=== PATIENT | female | born 1995 | race Caucasian/White ===

== ENCOUNTER 2017-07-01 11:40 | Emergency (ER) | payer SELFPAY ==
[2017-07-01] MEDS ORDERED: IBUPROFEN 600 MG TABLET PO ONE (13:12)
--- NOTE | 2017-07-01 13:14 | ER Document Report ---
ED General - General Chief Complaint: Sore Throat Stated Complaint: BODY ACHES Time Seen by Provider: 07/01/17 12:18 Mode of Arrival: Ambulatory Information source: Patient Notes: Patient is a 22 year old female who presents with body aches, sore throat, ear pain, that started this morning when she woke up. She has denies any fever, chills, ear pain, headache, neck pain/stiffness, productive/non-productive cough , nausea, vomiting, or diarrhea. She denies sick contacts at home. She is unsure if she got her flu shot. She did not take any medication for this. TRAVEL OUTSIDE OF THE [place] IN LAST 30 DAYS: No - Related Data Allergies/Adverse Reactions: brad Allergy (Verified 07/01/17 12:31) peach Allergy (Verified 07/01/17 12:32) Past Medical History - General Information source: Patient - Social History Smoking Status: Current Every Day Smoker Chew tobacco use (# tins/day): No Frequency of alcohol use: Rare Drug Abuse: None Family History: Reviewed & Not Pertinent Patient has suicidal ideation: No Patient has homicidal ideation: No Renal/ Medical History: Denies: Hx Peritoneal Dialysis GI Medical History: Reports: Hx Gastroesophageal Reflux Disease - Immunizations Hx Diphtheria, Pertussis, Tetanus Vaccination: Yes - 04/07/15 Review of Systems - Review of Systems Constitutional: See HPI EENT: See HPI Cardiovascular: No symptoms reported Respiratory: See HPI Gastrointestinal: No symptoms reported Genitourinary: No symptoms reported Female Genitourinary: No symptoms reported Musculoskeletal: No symptoms reported Skin: No symptoms reported Hematologic/Lymphatic: No symptoms reported Neurological/Psychological: No symptoms reported Physical Exam - Vital signs Vitals: Temp Pulse Resp BP Pulse Ox 100.5 F H 130 H 24 H 97/50 L 98 07/01/17 11:59 07/01/17 11:59 07/01/17 11:59 07/01/17 11:59 07/01/17 11:59 Interpretation: Hypotensive - patient states they took BP over her large sweatshirt, Tachycardic - not tachycardic on my ausculatation, Febrile - Notes Notes: PHYSICAL EXAM: CONSTITUTIONAL: Alert and oriented, well-appearing and in no acute distress. HENT: Normocephalic, atraumatic. Ear canals without erythema or foreign body, TMs pearly guidry with good bony landmarks. Nares clear without erythema, septal hematoma or deviation, airway patent. Oropharynx clear without erythema, tonsilar exudate or malocclusion. Trachea midline. Uvula midline. Moist mucous membranes. EYES: Pupils equal round and reactive to light, EOM intact. Sclera anicteric, conjunctiva are normal. No entrapment. NECK: supple without lymphadenopathy. No midline tenderness or paraspinous muscle spasms. No step-offs or deformities. ROM intact. No nuchal rigidity, negative Kernig's and Brudzinski's. HEART: Regular rate and rhythm without murmurs. LUNGS: CTAB and equal. No wheezes, rales or rhonchi. EXTREMITIES: Normal range of motion, no pitting edema. No cyanosis. Cap Refill < 3 seconds. NEURO: Cranial nerves grossly intact. Normal sensory/motor exams. PSYCH: Normal mood, normal affect. SKIN: Warm and dry. Normal turgor. No rashes or lesions noted. Course - Re-evaluation Re-evalutation: 07/01/17 13:14 Patient seen and examined. Patient sitting upright in exam bed, speaking in full sentences. Nontoxic in appearance and in no respiratory distress. No meningeal signs, lungs are clear to auscultation bilaterally. Rapid strep negative, throat culture pending. Rapid influenza negative. Given Motrin for fever. Patient states she is feeling better. Of note vital signs improved following administration of Motrin. At this point, low suspicion for any meningitis, sepsis, peritonsillar/pharyngeal abscess, respiratory compromise, Jan's, or other emergent systemic conditions. Given strict return precautions if patient is not feeling better in 2-3 days. Advised to follow-up with primary care doctor as well. Given prescriptions for supportive care treatments. At this time, will discharge with return precautions and follow-up recommendations. Verbal discharge instructions given at the bedside and opportunity for questions given. Medication warnings reviewed. Patient is in agreement with this plan and has verbalized understanding of return precautions and the need for primary care follow-up in the next 24-72 hours. - Vital Signs Vital signs: Temp Pulse Resp BP Pulse Ox 99.0 F 113 H 18 100/51 L 98 07/01/17 14:28 07/01/17 14:28 12/14/17 14:28 07/01/17 14:28 07/01/17 14:28 07/01/17 15:34 Repeat vital signs as above. Given motrin for fever. Discharge - Discharge Clinical Impression: Viral URI Condition: Stable Disposition: HOME, SELF-CARE Additional Instructions: UPPER RESPIRATORY ILLNESS: You have a viral infection of the respiratory passages -- a "cold." This common infection causes nasal congestion, drainage, and often sore throat and cough. It is highly contagious. The disease usually lasts about 10 to 14 days. There is no "cure" for the viral infection -- it must run its course. If there is a complication, such as bacterial infection in the nose, sinuses, middle ear, or bronchial tubes, antibiotics may be required. The antibiotics won't affect the virus. Drink plenty of fluids. A humidifier may help. An expectorant medication or decongestant may make you more comfortable. Use acetaminophen or ibuprofen for fever or aches. See the doctor if fever persists over two days, if there is any significant worsening of your symptoms, or if you simply fail to improve as expected. DECONGESTANT MEDICATION: A decongestant medicine has been prescribed. Often this medicine is combined in the same tablet with an antihistamine or expectorant. This type of medicine is helpful in treating a bad cold or sinus condition, as well as in treatment of the nasal congestion of hay fever. It is not of much benefit for lung infections. Decongestant medicines are related to stimulants. They can cause an increase in blood pressure and heart rate. Persons with heart disease and high blood pressure should not take decongestants without discussing this with the physician. If you develop palpitations, chest pain, headache, or tremors, stop the medicine and consult your physician. USE OF ACETAMINOPHEN (Tylenol): Acetaminophen may be taken for pain relief or fever control. It's much safer than aspirin, offering a wider range of "safe" dosages. It is safe during . Some brand names are Tylenol, Panadol, Datril, Anacin 3, Tempra, and Liquiprin. Acetaminophen can be repeated every four hours. The following are maximum recommended dosages: >89 pounds or adults 650 mg to 900 mg Acetaminophen can be repeated every four hours. Maximum dose not to exceed 4000 mg a day. SMOKING: If you smoke, you should stop smoking. The tar and chemicals in cigarette smoke are harmful. Smoking has been shown to cause: emphysema chronic bronchitis lung cancer mouth and throat cancer stomach and pancreas cancer premature aging defects In addition, smoking increases ear and lung infections in children of smokers. FOLLOW-UP CARE: If you have been referred to a physician for follow-up care, call the physician s office for an appointment as you were instructed or within the next two days. If you experience worsening or a significant change in your symptoms, notify the physician immediately or return to the Emergency Department at any time for re-evaluation. Prescriptions: Pseudoephedrine HCl [Sudafed] 30 mg PO Q6HP PRN #8 tablet PRN Reason: Fluticasone Propionate [Flonase Nasal [place] 50 Mcg/[place] 16 gm] 1 spray NASL Q12 #1 inhaler Ibuprofen [Motrin 600 Mg Tablet] 600 mg PO TID #15 tablet Forms: Return to Work
[2017-07-01 14:29] VITALS: BP 100/51
== END 2017-07-01 14:35 | disposition home or self-care (01) ==
LOC: ER 11:40
DX: J02.8 Acute pharyngitis due to other specified organisms (principal); B97.89 Other viral agents as the cause of diseases classified elsewhere; R50.9 Fever, unspecified; H92.09 Otalgia, unspecified ear; F17.200 Nicotine dependence, unspecified, uncomplicated; Z91.018 Allergy to other foods
CPT/HCPCS: 87070; 87804; 87880; 99283

== ENCOUNTER 2017-12-16 23:17 | Emergency (ER) | payer SELFPAY ==
[2017-12-16 23:44] VITALS: BP 100/56
== END 2017-12-17 00:45 | disposition left against medical advice (07) ==
LOC: ER 23:17
DX: Z53.21 Procedure and treatment not carried out due to patient leaving prior to being seen by health care provider (principal)

== ENCOUNTER 2018-04-25 12:06 | Emergency (ER) | payer MEDICAID ==
--- NOTE | 2018-04-25 12:38 | ER Document Report ---
ED Medical Screen (RME) - General Chief Complaint: Cough Stated Complaint: COUGH Time Seen by Provider: 04/25/18 12:35 TRAVEL OUTSIDE OF THE [place] IN LAST 30 DAYS: No - HPI Notes: 04/25/18 12:36 cough with cwp for 1 week.. pt also states needs a Brain scan because people think "I'm crazy" when as why people think she is crazy pt states "because I want a dna test to see if he is my father." denies hi si no signs of hallucinations - Related Data Allergies/Adverse Reactions: brad Allergy (Verified 04/25/18 12:15) peach Allergy (Verified 04/25/18 12:15) Past Medical History - Social History Frequency of alcohol use: None Drug Abuse: None Renal/ Medical History: Denies: Hx Peritoneal Dialysis GI Medical History: Reports: Hx Gastroesophageal Reflux Disease - Immunizations Hx Diphtheria, Pertussis, Tetanus Vaccination: Yes - 04/07/15 Review of Systems - Review of Systems Cardiovascular: Chest pain Respiratory: Cough Physical Exam - Vital signs Vitals: Temp Pulse Resp BP Pulse Ox 99.2 F 116 H 18 118/72 100 04/25/18 12:28 04/25/18 12:28 04/25/18 12:28 04/25/18 12:28 04/25/18 12:28 - Respiratory Respiratory status: No respiratory distress Chest status: Nontender Breath sounds: Normal Chest palpation: Normal Course - Vital Signs Vital signs: Temp Pulse Resp BP Pulse Ox 99.2 F 116 H 18 118/72 100 04/25/18 12:28 04/25/18 12:28 04/25/18 12:28 04/25/18 12:28 04/25/18 12:28
--- NOTE | 2018-04-25 12:58 | ER Document Report ---
ED General - General Chief Complaint: Cough Stated Complaint: COUGH Time Seen by Provider: 04/25/18 12:35 Notes: Patient is a 23-year-old female that presents to the emergency department for chief complaint of cough. Patient noted in triage note that she wanted a CT scan of her brain because people think she is crazy that she wants a DNA test, when asked about this, the patient stated that she was referring to paternity of her son, and that she is no longer interested in this. She states that her cough is been going on for a few weeks, the patient overall is not a great historian, she denies noting any fevers, chills, sore throat, shortness of breath, difficulty breathing. She has had some chest discomfort with the cough , but denies any chest pain on my exam. She denies having any other complaints at this time, including denies any nausea, vomiting, abdominal pain, dysuria or hematuria. Patient states that she does not believe that she is . Her first date of her last menstrual period was last month, but does not know the exact date Past Medical History: Denies chronic medical conditions Past Surgical History: Denies surgical history Social History: Admits to smoking cigarettes daily, denies alcohol use, admits to occasional marijuana use Family History: Reviewed and noncontributory for presenting illness Allergies: Reviewed, see documented allergy list. REVIEW OF SYSTEMS: Unless otherwise stated in this report the patient's positive and negative responses for review of systems for constitutional, eyes, ENT, cardiovascular, respiratory, gastrointestinal, neurological, genitourinary, musculoskeletal, and integumentary systems and related systems to the presenting problem are either as stated in the HPI or were not pertinent or were negative for the symptoms and/or complaints related to the presenting medical problem. PHYSICAL EXAMINATION: Vital signs reviewed, nursing noted reviewed. GENERAL: Well-appearing, well-nourished and in no acute distress. HEAD: Atraumatic, normocephalic. EYES: Eyes appear normal, extraocular movements intact, sclera anicteric, conjunctiva are normal. ENT: nares patent, oropharynx clear without exudates. Moist mucous membranes. NECK: Normal range of motion, supple without lymphadenopathy LUNGS: Breath sounds clear to auscultation bilaterally and equal. No wheezes rales or rhonchi. HEART: Regular rate and rhythm without murmurs ABDOMEN: Soft, nontender, normoactive bowel sounds. No rebound, guarding, or rigidity. No masses appreciated. EXTREMITIES: Nontender, good range of motion, no pitting or edema. NEUROLOGICAL: No focal neurological deficits. Moves all extremities spontaneously Motor and sensory grossly intact on exam. PSYCH: Normal mood, flat affect SKIN: Warm, Dry, normal turgor, no rashes or lesions noted on exposed skin TRAVEL OUTSIDE OF THE [place] IN LAST 30 DAYS: No - Related Data Allergies/Adverse Reactions: brad Allergy (Verified 04/25/18 12:15) peach Allergy (Verified 04/25/18 12:15) Past Medical History - Social History Smoking Status: Current Every Day Smoker Frequency of alcohol use: None Drug Abuse: None Family History: Reviewed & Not Pertinent Patient has suicidal ideation: No Patient has homicidal ideation: No Renal/ Medical History: Denies: Hx Peritoneal Dialysis GI Medical History: Reports: Hx Gastroesophageal Reflux Disease - Immunizations Hx Diphtheria, Pertussis, Tetanus Vaccination: Yes - 04/07/15 Physical Exam - Vital signs Vitals: Temp Pulse Resp BP Pulse Ox 99.2 F 116 H 18 118/72 100 04/25/18 12:28 04/25/18 12:28 04/25/18 12:28 04/25/18 12:28 04/25/18 12:28 Course - Re-evaluation Re-evalutation: Patient seen and examined vital signs reviewed. Laboratory data and imaging were ordered as appropriate for the patient's presenting symptoms and complaint, with consideration of any critical or life threatening conditions that may be associated with their obtained history and exam as noted above. Patient was treated with albuterol breathing treatment Results were reviewed when available and demonstrated patient was , and had a urinary tract infection, chest x-ray was negative, she did have a mild leukocytosis, possibly from the UTI, patient did not previously know she was , she was advised she needs to follow-up with women's health, and be prescribed an antibiotic given that she is The patient was re-evaluated and was improved Evaluation was most consistent with bronchitis, urinary tract infection, , will prescribe the patient Keflex for 5 days, and albuterol inhaler, she was advised that she was , and she needs follow-up, the patient became slightly argumentative, stating she wanted to know where her son was, I asked where he could be, she stated that he was with his father which she does not have a relationship with, and he was with him over the weekend, but did not bring him back, asked her about custody rights, she states that she has full custody, and she reports that she called the father and he hung up the phone, I told her that if this is a concern that she should call [place] [employer], and I did have the director of casework department see the patient, and she worked to refer the patient for outpatient psychology eval, the patient denied having any suicidal homicidal ideations, or active hallucinations at this time. She was advised that she needs to see [employer], discontinue any smoking of marijuana, or cigarettes. Results were discussed with the patient at this point, after careful consideration I feel that that patient can be discharged from the emergency department, the patient was educated treatments and reasons to return to the emergency department based on their presumed diagnosis as noted above, they were advised to followup with a primary care physician in 2-3 days. Patient was agreeable to plan of care. *Note is created using voice recognition software and may contain spelling, syntax or grammatical errors. Laboratory 04/25/18 04/25/18 04/25/18 12:56 12:56 12:56 WBC 12.7 H RBC 4.31 Hgb 13.0 Hct 37.1 MCV 86 MCH 30.1 MCHC 34.9 RDW 13.4 Plt Count 412 Seg Neutrophils % 65.2 Lymphocytes % 25.5 Monocytes % 7.8 Eosinophils % 1.2 Basophils % 0.3 Absolute Neutrophils 8.3 H Absolute Lymphocytes 3.2 Absolute Monocytes 1.0 Absolute Eosinophils 0.2 Absolute Basophils 0.0 Sodium 142.6 Potassium 3.5 L Chloride 106 Carbon Dioxide 23 Anion Gap 14 BUN 6 L Creatinine 0.55 Est GFR ( Amer) > 60 Est GFR (Non-Af Amer) > 60 Glucose 91 Calcium 10.1 Total Bilirubin 0.9 Direct Bilirubin 0.3 Neonat Total Bilirubin Not Reportable Neonat Direct Bilirubin Not Reportable Neonat Indirect Bili Not Reportable AST 13 L ALT 17 Alkaline Phosphatase 92 Total Protein 7.9 Albumin 4.7 Serum HCG, Qual POSITIVE H Urine Color Urine Appearance Urine pH Ur Specific [place] Urine Protein Urine Glucose (UA) Urine Ketones Urine Blood Urine Nitrite Urine Bilirubin Urine Urobilinogen Ur Leukocyte Esterase Urine WBC (Auto) Urine RBC (Auto) Urine Bacteria (Auto) Squamous Epi Cells Auto U Non-Squamous Epis Auto Calcium Oxalate Cr Auto Urine Mucus (Auto) Urine Ascorbic Acid Salicylates < 1.0 L Urine Opiates Screen Urine Methadone Screen Acetaminophen < 10 L Ur Barbiturates Screen Ur Phencyclidine Scrn Ur Amphetamines Screen U Benzodiazepines Scrn Urine Cocaine Screen U Marijuana (THC) Screen Serum Alcohol < 10 04/25/18 04/25/18 13:17 13:17 WBC RBC Hgb Hct MCV MCH MCHC RDW Plt Count Seg Neutrophils % Lymphocytes % Monocytes % Eosinophils % Basophils % Absolute Neutrophils Absolute Lymphocytes Absolute Monocytes Absolute Eosinophils Absolute Basophils Sodium Potassium Chloride Carbon Dioxide Anion Gap BUN Creatinine Est GFR ( Amer) Est GFR (Non-Af Amer) Glucose Calcium Total Bilirubin Direct Bilirubin Neonat Total Bilirubin Neonat Direct Bilirubin Neonat Indirect Bili AST ALT Alkaline Phosphatase Total Protein Albumin Serum HCG, Qual Urine Color DILIP Urine Appearance CLOUDY Urine pH 6.0 Ur Specific [place] 1.027 Urine Protein 30 H Urine Glucose (UA) 50 H Urine Ketones 25 H Urine Blood SMALL H Urine Nitrite NEGATIVE Urine Bilirubin Urine Urobilinogen 8.0 H Ur Leukocyte Esterase LARGE H Urine WBC (Auto) 11 Urine RBC (Auto) 10 Urine Bacteria (Auto) 1+ Squamous Epi Cells Auto 33 U Non-Squamous Epis Auto 1 Calcium Oxalate Cr Auto FEW Urine Mucus (Auto) MANY Urine Ascorbic Acid 20 H Salicylates Urine Opiates Screen NEGATIVE Urine Methadone Screen NEGATIVE Acetaminophen Ur Barbiturates Screen NEGATIVE Ur Phencyclidine Scrn NEGATIVE Ur Amphetamines Screen NEGATIVE U Benzodiazepines Scrn NEGATIVE Urine Cocaine Screen NEGATIVE U Marijuana (THC) Screen UNCONFIRMED POSITIVE Serum Alcohol Chest X-Ray 04/25/18 12:36 IMPRESSION: NO ACUTE RADIOGRAPHIC FINDING IN THE CHEST. - Vital Signs Vital signs: Temp Pulse Resp BP Pulse Ox 98.6 F 97 18 106/58 L 99 04/25/18 15:24 04/25/18 15:24 04/25/18 15:24 04/25/18 15:24 04/25/18 15:24 - Laboratory Result Diagrams: 04/25/18 12:56 04/25/18 12:56 Laboratory results interpreted by me: 04/25/18 04/25/18 04/25/18 12:56 12:56 12:56 WBC 12.7 H Absolute Neutrophils 8.3 H Potassium 3.5 L BUN 6 L AST 13 L Serum HCG, Qual POSITIVE H Urine Protein Urine Glucose (UA) Urine Ketones Urine Blood Urine Urobilinogen Ur Leukocyte Esterase Urine Ascorbic Acid Salicylates < 1.0 L Acetaminophen < 10 L 04/25/18 13:17 WBC Absolute Neutrophils Potassium BUN AST Serum HCG, Qual Urine Protein 30 H Urine Glucose (UA) 50 H Urine Ketones 25 H Urine Blood SMALL H Urine Urobilinogen 8.0 H Ur Leukocyte Esterase LARGE H Urine Ascorbic Acid 20 H Salicylates Acetaminophen - EKG Interpretation by Me Additional EKG results interpreted by me: EKG demonstrates sinus rhythm with a ventricular rate of 89 bpm, normal axis, normal intervals, no evidence of acute ischemia in this EKG, compared with prior , without significant change. Discharge - Discharge Clinical Impression: Acute bronchitis Qualifiers: Bronchitis organism: unspecified organism Qualified Code(s): J20.9 - Acute bronchitis, unspecified UTI (urinary tract infection) Qualifiers: Urinary tract infection type: site unspecified Hematuria presence: with hematuria Qualified Code(s): N39.0 - Urinary tract infection, site not specified Qualifiers: Weeks of gestation: unspecified Qualified Code(s): Z34.90 - Encounter for supervision of normal , unspecified, unspecified trimester Condition: Stable Disposition: HOME, SELF-CARE Instructions: ([facility]), Urinary Tract Infection ([facility]) Additional Instructions: Please return to the emergency department if you have any worsening, or concern of your symptoms. Please return to the emergency department if you develop chest pain, difficulty breathing, severe abdominal pain, or ongoing vomiting. Please follow-up with your primary care physician in 2-3 days and any other recommended physicians. If prescribed, take all medications as directed. If you have any questions or concerns do not hesitate to return the emergency department for evaluation. Please take the medications as prescribed including the antibiotic for 5 days, complete the full course, and please follow-up with [employer] regarding . Prescriptions: Albuterol Sulfate [Proair HFA Inhalation Aerosol 8.5 gm MDI] 2 puff IH Q4H PRN # 1 mdi PRN Reason: Cephalexin Monohydrate [Keflex 500 mg Capsule] 500 mg PO BID 5 Days #10 capsule Referrals: [facility] [Provider Group] - Follow up tomorrow ([employer])
[2018-04-25 13:08] LABS: ABSOLUTE EOSINOPHILS # (AUTO) 0.2 10^3/uL (0.0-0.6); ABSOLUTE LYMPHOCYTES (AUTO) 3.2 10^3/uL (0.5-4.7); ABSOLUTE NEUT (AUTO) 8.3 10^3/uL (1.7-8.2); BASOPHILS % (AUTO) 0.3 % (0-2); EOSINOPHILS % (AUTO) 1.2 % (0-6); HEMATOCRIT 37.1 % (36.0-47.0); LYMPHOCYTES % (AUTO) 25.5 % (13-45); MEAN CORPUSCULAR HEMOGLOBIN 30.1 pg (27.0-33.4); MEAN CORPUSCULAR HGB CONC 34.9 g/dL (32.0-36.0); MEAN CORPUSCULAR VOLUME 86 fl (80-97); MONOCYTES % (AUTO) 7.8 % (3-13); PLATELET COUNT 412 10^3/uL (150-450); RED BLOOD COUNT 4.31 10^6/uL (3.72-5.28); RED CELL DISTRIBUTION WIDTH 13.4 % (11.5-14.0); SEGMENTED NEUTROPHILS % (AUTO) 65.2 % (42-78); TOTAL CELLS COUNTED % (AUTO) 100 %; WHITE BLOOD COUNT 12.7 10^3/uL (4.0-10.5)
[2018-04-25 13:34] LABS: ALANINE AMINOTRANSFERASE 17 U/L (9-52); ALBUMIN 4.7 g/dL (3.5-5.0); ALKALINE PHOSPHATASE 92 U/L (38-126); ANION GAP 14 (5-19); ASPARTATE AMINO TRANSFERASE 13 U/L (14-36); BILIRUBIN,DIRECT 0.3 mg/dL (0.0-0.4); BILIRUBIN,TOTAL 0.9 mg/dL (0.2-1.3); BLOOD UREA NITROGEN 6 mg/dL (7-20); CALCIUM 10.1 mg/dL (8.4-10.2); CARBON DIOXIDE 23 mmol/L (22-30); CHLORIDE 106 mmol/L (98-107); GLUCOSE 91 mg/dL (75-110); POTASSIUM 3.5 mmol/L (3.6-5.0); SODIUM 142.6 mmol/L (137-145); TOTAL PROTEIN 7.9 g/dL (6.3-8.2)
--- NOTE | 2018-04-25 13:34 | RADIOLOGY REPORT (SQ) ---
EXAM DESCRIPTION: CHEST 2 VIEWS COMPLETED DATE/TIME: 04/25/2018 1:25 pm REASON FOR STUDY: cough cwp COMPARISON: Two-view chest 03/19/2016 EXAM PARAMETERS: NUMBER OF VIEWS: two views TECHNIQUE: Digital Frontal and Lateral radiographic views of the chest acquired. RADIATION DOSE: NA LIMITATIONS: none FINDINGS: LUNGS AND PLEURA: No opacities, masses or pneumothorax. No pleural effusion. MEDIASTINUM AND HILAR STRUCTURES: No masses or contour abnormalities. HEART AND VASCULAR STRUCTURES: Heart normal size. No evidence for failure. BONES: No acute findings. HARDWARE: None in the chest. OTHER: No other significant finding. IMPRESSION: NO ACUTE RADIOGRAPHIC FINDING IN THE CHEST. TECHNICAL DOCUMENTATION: JOB ID: [id number] [employer]- All Rights Reserved Reading location - IP/workstation name: [email or web address]
[2018-04-25 13:35] LABS: ACETAMINOPHEN < 10 ug/mL (10-30); ALCOHOL < 10 mg/dL (NONE DETECTED); SALICYLATE < 1.0 mg/dL (2.0-20.0)
[2018-04-25] MEDS ORDERED: IPRATROPIUM/ALBUTEROL 0.5-2.5 MG/3 ML AMPUL NEB ONE (13:35)
[2018-04-25 13:59] LABS: APPEARANCE,URINE CLOUDY; CALCIUM OXALATE CRYSTALS,URINE FEW /HPF; COLOR,URINE AMBER; GLUCOSE, URINE 50 mg/dL (NEGATIVE); KETONES,URINE 25 mg/dL (NEGATIVE); LEUKOCYTE ESTERASE,URINE LARGE (NEGATIVE); NITRITE,URINE NEGATIVE (NEGATIVE); PROTEIN,URINE 30 mg/dL (NEGATIVE)
[2018-04-25 14:06] LABS: URINE AMPHETAMINES SCREEN NEGATIVE; URINE BARBITURATES SCREEN NEGATIVE; URINE BENZODIAZEPINES SCREEN NEGATIVE; URINE COCAINE SCREEN NEGATIVE; URINE MARIJUANA (THC) SCREEN UNCONFIRMED POSITIVE; URINE METHADONE SCREEN NEGATIVE; URINE PHENCYCLIDINE SCREEN NEGATIVE
[2018-04-25 14:08] LABS: URINE SPECIFIC GRAVITY 1.027
[2018-04-25 15:26] VITALS: BP 106/58
--- NOTE | 2018-04-25 18:07 | EKG REPORT ---
SEVERITY:- NORMAL ECG - SINUS RHYTHM : Confirmed by: Cheryl Mcmullen MD 25-Apr-2018 18:07:07
== END 2018-04-25 15:26 | disposition home or self-care (01) ==
LOC: ER 12:06
DX: O99.511 Diseases of the respiratory system complicating pregnancy, first trimester (principal); J20.9 Acute bronchitis, unspecified; O23.41 Unspecified infection of urinary tract in pregnancy, first trimester; O26.891 Other specified pregnancy related conditions, first trimester; R05 Cough; O99.111 Other diseases of the blood and blood-forming organs and certain disorders involving the immune mechanism complicating pregnancy, first trimester; D72.829 Elevated white blood cell count, unspecified; O99.331 Smoking (tobacco) complicating pregnancy, first trimester; F17.210 Nicotine dependence, cigarettes, uncomplicated; Z91.018 Allergy to other foods; Z3A.01 Less than 8 weeks gestation of pregnancy
CPT/HCPCS: 93005; 94640; 99284; 36415; 80307 ×4; 84703; 85025; 80053; 81001; 71046; 93010; J7620

== ENCOUNTER 2018-10-06 11:26 | Outpatient (CLI) | payer OTHER, MEDICAID ==
[2018-10-06 12:38] LABS: APPEARANCE,URINE CLEAR; BILIRUBIN,URINE NEGATIVE (NEGATIVE); COLOR,URINE STRAW; GLUCOSE, URINE NEGATIVE (NEGATIVE); KETONES,URINE NEGATIVE (NEGATIVE); LEUKOCYTE ESTERASE,URINE TRACE (NEGATIVE); NITRITE,URINE NEGATIVE (NEGATIVE); PROTEIN,URINE NEGATIVE (NEGATIVE); URINE SPECIFIC GRAVITY 1.002; UROBILINOGEN,URINE NEGATIVE mg/dL (<2.0)
[2018-10-06 13:16] LABS: ABSOLUTE EOSINOPHILS # (AUTO) 0.2 10^3/uL (0.0-0.6); ABSOLUTE LYMPHOCYTES (AUTO) 2.8 10^3/uL (0.5-4.7); ABSOLUTE MONOCYTES (AUTO) 1.3 10^3/uL (0.1-1.4); ABSOLUTE NEUT (AUTO) 12.9 10^3/uL (1.7-8.2); BASOPHILS % (AUTO) 0.2 % (0-2); EOSINOPHILS % (AUTO) 1.3 % (0-6); HEMATOCRIT 25.5 % (36.0-47.0); LYMPHOCYTES % (AUTO) 16.4 % (13-45); MEAN CORPUSCULAR HEMOGLOBIN 31.1 pg (27.0-33.4); MEAN CORPUSCULAR HGB CONC 35.2 g/dL (32.0-36.0); MEAN CORPUSCULAR VOLUME 88 fl (80-97); MONOCYTES % (AUTO) 7.4 % (3-13); PLATELET COUNT 402 10^3/uL (150-450); RED BLOOD COUNT 2.89 10^6/uL (3.72-5.28); SEGMENTED NEUTROPHILS % (AUTO) 74.7 % (42-78); TOTAL CELLS COUNTED % (AUTO) 100 %; WHITE BLOOD COUNT 17.3 10^3/uL (4.0-10.5)
[2018-10-06 13:20] LABS: INTERNATIONAL RATION (INR) 0.95; PROTHROMBIN TIME 13.2 SEC (11.4-15.4)
[2018-10-06 13:21] LABS: FIBRINOGEN 479 mg/dL (209-497); PARTIAL THROMBOPLASTIN TIME 26.8 SEC (23.5-35.8)
[2018-10-06 15:34] LABS: FETAL RBC COUNT 0
[2018-10-06 15:36] LABS: KB INTERPRETATION NEGATIVE (NEGATIVE)
== END 2018-10-06 15:35 | disposition home or self-care (01) ==
LOC: LC 11:26
PROVIDERS: ATTEND Obstetrics & Gynecology Gynecology
PROC: 4A1HXCZ Monitoring of Products of Conception, Cardiac Rate, External Approach (ICD-10-PCS; principal; 2018-10-06)
DX: O9A.213 Injury, poisoning and certain other consequences of external causes complicating pregnancy, third trimester (principal); Z3A.29 29 weeks gestation of pregnancy; V48.5XXA Car driver injured in noncollision transport accident in traffic accident, initial encounter; Y93.9 Activity, unspecified; Y92.9 Unspecified place or not applicable
CPT/HCPCS: 36415; 81001; 85025; 85362; 85384; 85460; 85610; 85730; 86850; 86900; 86901

== ENCOUNTER 2019-01-07 13:27 | Inpatient (IN) | payer MEDICAID ==
--- NOTE | 2019-01-07 14:14 | Admission Physical ---
Datetime Report Generated by CPN: 01/07/2019 14:14 CURRENT ADMISSION Hx Assessment: The History has been Reviewed and is Current Chief Complaint: Uterine Contractions Chief Complaint Other: Pt presents with contractions every 2-3 min that started this morning. +FM, no lof, no vag bleeding. Indication for Induction: Not Applicable Admit Impression : Term, Intrauterine ; Active Labor Admit Plan: Admit to Unit; Initiate Labor Protocol ALLERGIES Medication Allergies: No Medication Allergies: peach (04/25/2018); brad (04/25/2018) Latex: Latex Allergies OBSTETRICAL HISTORY EDC: 01/10/2019 00:00 : 2 Para: 1 Term: 1 Livin Cesareans: 0 Gestational Diabetes: No Rh Sensitization: No Incompetent Cervix: No ANTONI: No Infertility: No ART Treatment: No Uterine Anomaly: No IUGR: No Hx Previous C/S: No Macrosomia: No Hx Loss/Stillborn: No PIH: No Hx : No Placenta Previa/Abruption: No Depression/PP Depression: No PTL/PROM: No Post Hemorrhage: No Current Procedures: Ultrasound Obstetrical History Comments: G1 - SVE baby boy 2014, no complications G2 - current SEE RECORDS Alcohol: No Marijuana : No Cocaine: No Other Illicit Drugs: No Cigarettes: Current Everyday Smoker. [id number] Cigarette Frequency: 5 - 10 per day Advised to Stop: Yes MEDICAL HISTORY Diabetes: No Blood Transfusion: No Pulmonary Disease (Asthma, TB): No Breast Disease: No Hypertension: No [employer] Surgery: No Heart Disease: No Hosp/Surgery: No Autoimmune Disorder: No Anesthetic Complications: No Kidney Disease: No Abnormal Pap Smear: No Neuro/Epilepsy: No Psychiatric Disorders: No Other Medical Diseases: No Hepatitis/Liver Disease: No Significant Family History: No Varicosities/Phlebitis: No Trauma/Violence : No Thyroid Dysfunction: No INFECTIOUS HISTORY Gonorrhea: No Genital Herpes: No Chlamydia: No Tuberculosis: No Syphilis: No Hepatitis: No HIV/AIDS Exposure: No Rash or Viral Illness: No HPV: No PHYSICAL EXAM General: Normal HEENT: Normal Heart: Normal Lungs: Normal Abdomen: Normal Extremities: Normal Physical Exam Comments: CV RRR PULM: LCTA Anthony Abd: soft, nontender; cephalic by leopolds EFW: 2700 Vital Signs: Reviewed; Within Normal Limits VAGINAL EXAM Dilatation: 6-7 Effacement: 100 Station: 0 Contraction Comments: every 2 min MEMBRANES Membranes: Intact FETUS A EGA: 39.4 Monitoring: External US FHR- Baseline: 135 Variability: Moderate 6-25bpm Accelerations: 15X15 Decelerations: None FHR Category: Category I Estimated Weight (gm): 2700 Presentation: Vertex Admit Comment: Admit to L_D IV access, labs obtained Pt consented for labor and anesthesia GBS neg Anemia with Hct of 25 yesterday; consented for blood transfusion if needed anticipate delivery PLANS FOR LABOR AND DELIVERY Labor and Delivery: None Pain Management: Epidural Feeding Preference: Breast Circumcision: Yes INFORMED CONSENT Informed Consent Obtained: Vaginal Delivery; Vacuum/Forceps Assist; Risks, Benefits and Alternatives Discussed Signature: with User ID: [email or web address]
[2019-01-07] MEDS ORDERED: MISOPROSTOL 0.2 MG TABLET ONE ×2 (14:28→17:36)
[2019-01-07] MEDS ORDERED: OXYTOCIN 10 UNIT/ML VIAL ONE (14:28)
[2019-01-07] MEDS ORDERED: LIDOCAINE 1% INJ-PF (10 MG/ML) 30 ML SDV ONE (14:29)
[2019-01-07] MEDS ORDERED: OXYTOCIN/NORMAL SALINE 20 UNIT/1,000 ML RTUINJ ONE (14:29)
[2019-01-07] MEDS ORDERED: BUPIVACAINE HCL 0.25 % INJ/PF (2.5 MG/1 ML) 30 ML VIAL ONE (14:34)
[2019-01-07] MEDS ORDERED: FENTANYL/BUPIVACAINE/NS/PF 300 MCG/150 ML RTUINJ EPI ONE (14:34)
[2019-01-07] MEDS ORDERED: EPHEDRINE SULFATE INJ 50 MG/1 ML AMPULE ONE (14:34)
[2019-01-07 14:47] LABS: ABSOLUTE BASOPHILS # (AUTO) 0.1 10^3/uL (0.0-0.2); ABSOLUTE EOSINOPHILS # (AUTO) 0.2 10^3/uL (0.0-0.6); ABSOLUTE MONOCYTES (AUTO) 1.2 10^3/uL (0.1-1.4); ABSOLUTE NEUT (AUTO) 11.9 10^3/uL (1.7-8.2); BASOPHILS % (AUTO) 0.6 % (0-2); HEMATOCRIT 30.6 % (36.0-47.0); HEMOGLOBIN 10.3 g/dL (12.0-15.5); LYMPHOCYTES % (AUTO) 18.3 % (13-45); MEAN CORPUSCULAR HEMOGLOBIN 29.1 pg (27.0-33.4); MEAN CORPUSCULAR HGB CONC 33.5 g/dL (32.0-36.0); MEAN CORPUSCULAR VOLUME 87 fl (80-97); MONOCYTES % (AUTO) 7.1 % (3-13); PLATELET COUNT 384 10^3/uL (150-450); RED BLOOD COUNT 3.52 10^6/uL (3.72-5.28); RED CELL DISTRIBUTION WIDTH 14.4 % (11.5-14.0); TOTAL CELLS COUNTED % (AUTO) 100 %; WHITE BLOOD COUNT 16.3 10^3/uL (4.0-10.5)
[2019-01-07 14:47] LABS: APPEARANCE,URINE SLIGHTLY-CLOUDY; BILIRUBIN,URINE NEGATIVE (NEGATIVE); COLOR,URINE YELLOW; GLUCOSE, URINE NEGATIVE (NEGATIVE); KETONES,URINE NEGATIVE (NEGATIVE); LEUKOCYTE ESTERASE,URINE TRACE (NEGATIVE); NITRITE,URINE NEGATIVE (NEGATIVE); PROTEIN,URINE NEGATIVE (NEGATIVE); URINE SPECIFIC GRAVITY 1.005; UROBILINOGEN,URINE NEGATIVE mg/dL (<2.0)
[2019-01-07 15:04] LABS: URINE AMPHETAMINES SCREEN NEGATIVE; URINE BARBITURATES SCREEN NEGATIVE; URINE BENZODIAZEPINES SCREEN NEGATIVE; URINE COCAINE SCREEN NEGATIVE; URINE MARIJUANA (THC) SCREEN NEGATIVE; URINE METHADONE SCREEN NEGATIVE; URINE PHENCYCLIDINE SCREEN NEGATIVE
[2019-01-07] MEDS ORDERED: METHYLERGONOVINE MALEATE INJ/PF 0.2 MG/1 ML AMPULE ONE (17:13)
[2019-01-07] MEDS ORDERED: MISOPROSTOL 0.2 MG TABLET PR ONE (17:25)
[2019-01-07] MEDS ORDERED: METHYLERGONOVINE MALEATE INJ/PF 0.2 MG/1 ML AMPULE IV ONE (17:28)
[2019-01-07] MEDS ORDERED: METHYLERGONOVINE MALEATE 0.2 MG TABLET PO SCH (18:00)
[2019-01-07] MEDS ORDERED: ACETAMINOPHEN 325 MG TABLET ONE (18:40)
--- NOTE | 2019-01-07 18:41 | Delivery Summary ---
Del Sum A-C Datetime Report Generated by CPN: 01/07/2019 18:41 DELIVERY PERSONNEL DELIVERY PERSONNEL: [id number] Delivery Doctor:: Regine Kellogg MD Labor and Delivery Nurse:: Katarina López RNenrollment advisor Nurse:: Mckayla Irving RN Nursery Nurse:: Nella Ponce RN [employer]/INDUSTRIAL ENGINEERING MANAGER: Emma Vela, HYDRATOR MATERNAL INFORMATION Delivery Anesthesia: Epidural Medications After Delivery: Pitocin Bolus-Please Comment; Methergine 0.2mg IM; Cytotec 1000mcg Per Rectum/Vagina Meds After Delivery Comment: Pitocin 20 Units/1000 ml NSS Estimated Blood Loss (ml): 400 Maternal Complications: Abruptio Placenta Complication Details: 20% abruption Provider Comments: Pt progressed to c/c/plus 3. Meconium noted on AROM along with blood. Epidural for anesthesia. With great maternal effort head delivered OA over intact perineum. Restituted ROT. No nuchal cord noted. With gentle downward pressure left anterior shoulder delivered. With gentle upward pressure right shoulder and body delivered. Spontaneous cry and infant placed on maternal abdomen. Meconium and terminal mec noted. Delayed cord clamping after 2 minutes. Cord clamped x2 and cut by FOB. With gentle downward pressure intact placenta with 3VC delivered. Pitocin started and fundus massaged to firm. Noted to have lower uterine segment atony so 1000mcg cytotec FL and 0.2mg methergine IM given. EBL 400. Fundus firm with massage and above medications. Placenta inspected and noted to have 20% abruption. No cervical, vaginal or perineal lacerations noted. Mother and baby in stable condition when provider left room. MD Valdez LABOR SUMMARY EDC: 01/10/2019 00:00 No. Babies in Womb: 1 Attempted: Yes Labor Anesthesia: Epidural LABOR INFORMATION Reason for Induction: Not Applicable Onset of Labor: 01/07/2019 13:46 Complete Dilatation: 01/07/2019 16:42 Oxytocin: N/A Group B Beta Strep: Negative Antibiotics # of Doses: 0 Steroids Given: None Reason Steroids Not Administered: Not Applicable MEMBRANES Membranes Rupture Method: Artificial Rupture of Membranes: 01/07/2019 15:46 Length of Rupture (hr): 1.18 Amniotic Fluid Color: Moderate Meconium Amniotic Fluid Amount: Scant STAGES OF LABOR Stage 1 hr: 2 Stage 1 min: 56 Stage 2 hr: 0 Stage 2 min: 15 Stage 3 hr: 0 Stage 3 min: 9 Total Time in Labor hr: 3 Total Time in Labor min: 20 VAGINAL DELIVERY Episiotomy: None Laceration #1: None Laceration Extension #1: N/A Laceration Repair: Not Applicable Sponge Count Correct: Yes Sharps Count Correct: Yes Count Comment: No sharps or sponges used in the delivery. Vaginal sweep performed by Dr. Kellogg CSECTION DELIVERY Primary Indication: N/A Secondary Indication: N/A CSection Incidence: N/A Labor: N/A Elective: N/A BABY A INFORMATION Delivery Date/Time: 01/07/2019 16:57 Method of Delivery: Vaginal Born in Route : No : N/A Forceps: N/A Vacuum Extraction: N/A Shoulder Dystocia : No PRESENTATION/POSITION BABY A Presentation: Cephalic Cephalic Presentation: Vertex Vertex Position: Occipital Anterior Breech Presentation: N/A PLACENTA INFORMATION BABY A Placenta Delivery Time : 01/07/2019 17:06 Placenta Method of Delivery: Spontaneous Placenta Status: Delivered SCORES BABY A Heart Rate 1 min: >100 bpm Resp Effort 1 min: Good Cry Reflex Irritability 1 min: Cough or Sneeze or Pulls Away Muscle Tone 1 min: Active Motion Color 1 min: Body [place], Extremities Blue Resuscitation Effort 1 min: Tactile Stimulation SCORE 1 MIN: 9 Heart Rate 5 min: >100 bpm Resp Effort 5 min: Good Cry Reflex Irritability 5 min: Cough or Sneeze or Pulls Away Muscle Tone 5 min: Active Motion Color 5 min: Body [place], Extremities Blue Resuscitation Effort 5 min: Tactile Stimulation SCORE 5 MIN: 9 INFORMATION BABY A Gestational Age at Delivery: 39.4 Gestational Status: Full Term- 39- 40.6 Weeks Outcome : Liveborn Condition : Stable Sex: Male IDENTIFICATION BABY A Infant Verification Date/Time: 01/07/2019 17:29 ID Band Number: [id number] Mother's Name Verified: Yes RN Verifying : Magen Josefina RN and DXander Garcia RN WEIGHT/LENGTH BABY A Birthweight (gm): 2664 Infant Weight (lb): 5 Infant Weight (oz): 14 Infant Length (in): 18.75 Length (cm): 47.63 CORD INFORMATION BABY A No. Cord Vessels: 3 Nuchal Cord : N/A Cord Blood Taken: Yes-For Eval (Mom's Blood Type - or O+) Suction: Mouth ASSESSMENT BABY A Physical Findings at Delivery: Within Normal Limits Infant Respirations: Appears Normal Skin to Skin: No Package Handler/ALS Called : No Infant Care By: William Ponce RN Transferred To: Remains with Mother SIGNATURES Signature: with User ID: [email or web address]
[2019-01-07] MEDS ORDERED: MEASLES,MUMPS&RUBELLA VACC/PF 0.5 ML VIAL SUBCUT PRN (19:58)
[2019-01-07] MEDS ORDERED: PROMETHAZINE HCL INJ 25 MG/1 ML VIAL IV PRN (19:58)
[2019-01-07] MEDS ORDERED: ACETAMINOPHEN WITH CODEINE #3 TABLET PO PRN (19:58)
[2019-01-07] MEDS ORDERED: DIPH/PERTUSS(ACELL)/TETANUS VAC/PF 0.5 ML SYR (>=10YO) IM PRN (19:58)
[2019-01-07] MEDS ORDERED: ACETAMINOPHEN 650 MG SUPP.RECT PR PRN (19:58)
[2019-01-07] MEDS ORDERED: DIPHENHYDRAMINE HCL 25 MG CAPSULE PO PRN (19:58)
[2019-01-07] MEDS ORDERED: BENZOCAINE/MENTHOL AEROSOL SPRAY 56 ML TOP PRN (19:58)
[2019-01-07] MEDS ORDERED: MAGNESIUM HYDROXIDE SUSP 30 ML UDCUP PO PRN (19:58)
[2019-01-07] MEDS ORDERED: ZOLPIDEM TARTRATE 5 MG TABLET PO PRN (19:58)
[2019-01-07] MEDS ORDERED: PROMETHAZINE HCL 25 MG TABLET PO PRN (19:58)
[2019-01-07] MEDS ORDERED: GLYCERIN/WITCH HAZEL LEAF 1 EACH MED..WIPE TP PRN (19:58)
[2019-01-07] MEDS ORDERED: NA PHOS,M-B/NA PHOS,DI-BA (ADULT) 133 ML ENEMA PR PRN (19:58)
[2019-01-07] MEDS ORDERED: PSEUDOEPHEDRINE HCL 30 MG TABLET PO PRN (19:58)
[2019-01-07] MEDS ORDERED: PROMETHAZINE HCL 25 MG SUPP.RECT PR PRN (19:58)
[2019-01-07] MEDS ORDERED: DIBUCAINE 1% OINTMENT 56 GM TP PRN (19:58)
[2019-01-07] MEDS: IBUPROFEN 800 MG TABLET PO SCH (21:55)
[2019-01-07] MEDS: FAMOTIDINE 20 MG TABLET PO SCH (21:55)
[2019-01-08] MEDS ORDERED: METHYLERGONOVINE MALEATE 0.2 MG TABLET ONE ×3 (00:13→11:07)
[2019-01-08] MEDS: METHYLERGONOVINE MALEATE 0.2 MG TABLET PO SCH ×3 (00:31→11:10)
[2019-01-08] MEDS ORDERED: MISOPROSTOL 0.2 MG TABLET ONE (06:29)
[2019-01-08] MEDS: IBUPROFEN 800 MG TABLET PO SCH ×3 (06:45→21:11)
[2019-01-08 07:45] LABS: HEMATOCRIT 28.6 % (36.0-47.0); HEMOGLOBIN 9.6 g/dL (12.0-15.5); MEAN CORPUSCULAR HEMOGLOBIN 29.3 pg (27.0-33.4); MEAN CORPUSCULAR HGB CONC 33.6 g/dL (32.0-36.0); MEAN CORPUSCULAR VOLUME 87 fl (80-97); PLATELET COUNT 366 10^3/uL (150-450); RED BLOOD COUNT 3.27 10^6/uL (3.72-5.28); RED CELL DISTRIBUTION WIDTH 14.8 % (11.5-14.0); WHITE BLOOD COUNT 18.7 10^3/uL (4.0-10.5)
--- NOTE | 2019-01-08 10:22 | PDOC PROGRESS REPORT ---
Subjective-OB Progress Note for:: 01/08/19 - PP Day #1, doing well, denies dizziness, SOB, states ambulating well, s/p w/ PPH. 20 % abruption noted at delivery, O negative, Rubella immune, bottlefeeding Physical Exam (OB) Vital Signs: Temp Pulse Resp BP Pulse Ox 97.8 F 58 L 16 115/73 100 01/08/19 08:00 01/08/19 08:00 01/08/19 08:00 01/08/19 08:00 01/08/19 08:00 Intake & Output 01/07/19 01/08/19 01/09/19 06:59 06:59 06:59 Intake Total 200 Balance 200 Weight 53.5 kg - General General Appearance: Appears well, Alert In distress: None - PIH/Pre-Eclampsia Headache: Absent Epigastric Pain: No Visual Changes: No - Lochia Lochia Amount: Small 10-25 ml Lochia Color: Rubra/Red - Abdomen Description: Tender, Soft Hernia Present: No Fundal Description: Firm, Midline Fundal Height: u/u - u/2 - Respiratory Respiratory Status: No respiratory distress - Abdominal Distension: No distension Tenderness: Nontender - Genitourinary Genitourinary Note: voiding - Extremities Upper extremity: Normal inspection Lower extremities: Normal inspection - Neurological Cognition: Normal Orientation: AAOx4 - Psychological Associated symptoms: Normal affect, Normal mood - Skin Skin Temperature: Warm Skin Moisture: Dry Objective-Diagnostic Laboratory: 01/08/19 07:08 01/07/19 01/07/19 01/07/19 13:47 14:30 14:30 WBC 16.3 H RBC 3.52 L Hgb 10.3 L Hct 30.6 L MCV 87 MCH 29.1 MCHC 33.5 RDW 14.4 H Plt Count 384 Seg Neutrophils % 73.0 Lymphocytes % 18.3 Monocytes % 7.1 Eosinophils % 1.0 Basophils % 0.6 Absolute Neutrophils 11.9 H Absolute Lymphocytes 3.0 Absolute Monocytes 1.2 Absolute Eosinophils 0.2 Absolute Basophils 0.1 Urine Color YELLOW Urine Appearance SLIGHTLY-CLOUDY Urine pH 9.0 Ur Specific [place] 1.005 Urine Protein NEGATIVE Urine Glucose (UA) NEGATIVE Urine Ketones NEGATIVE Urine Blood NEGATIVE Urine Nitrite NEGATIVE Ur Leukocyte Esterase TRACE H Blood Type O NEGATIVE Antibody Screen POSITIVE 01/08/19 07:08 WBC 18.7 H RBC 3.27 L Hgb 9.6 L Hct 28.6 L MCV 87 MCH 29.3 MCHC 33.6 RDW 14.8 H Plt Count 366 Seg Neutrophils % Lymphocytes % Monocytes % Eosinophils % Basophils % Absolute Neutrophils Absolute Lymphocytes Absolute Monocytes Absolute Eosinophils Absolute Basophils Urine Color Urine Appearance Urine pH Ur Specific [place] Urine Protein Urine Glucose (UA) Urine Ketones Urine Blood Urine Nitrite Ur Leukocyte Esterase Blood Type Antibody Screen Assessment and Plan(PN) - Assessment and Plan (1) Acute blood loss anemia Is this a current diagnosis for this admission?: Yes (2) Abruptio placenta Qualifiers: Trimester: third trimester Qualified Code(s): O45.93 - Premature separation of placenta, unspecified, third trimester Is this a current diagnosis for this admission?: Yes (3) Delivery normal Is this a current diagnosis for this admission?: Yes - Time Spent with Patient Time with patient: Less than 15 minutes Medications reviewed and adjusted accordingly: Yes - Disposition Anticipated Discharge: Home Within: within 24 hours
[2019-01-08] MEDS: DOCUSATE SODIUM 100 MG CAPSULE PO SCH ×2 (11:10→18:25)
[2019-01-08] MEDS: ACETAMINOPHEN WITH CODEINE #3 TABLET PO PRN ×2 (11:10→18:25)
[2019-01-08] MEDS: FERROUS SULFATE 325 MG TABLET PO SCH ×2 (11:11→18:25)
[2019-01-08] MEDS: PRENATAL VITAMIN W DHA CAPSULE PO SCH (16:38)
[2019-01-08] MEDS: FAMOTIDINE 20 MG TABLET PO SCH ×2 (16:38→21:11)
[2019-01-08] MEDS: SENNOSIDES/DOCUSATE 8.6-50 MG 1 EACH TABLET PO SCH (16:39)
[2019-01-09] MEDS: IBUPROFEN 800 MG TABLET PO SCH (05:42)
[2019-01-09 08:13] VITALS: BP 127/79
--- NOTE | 2019-01-09 09:33 | PDOC DISCHARGE SUMMARY ---
Final Diagnosis Discharge Date: 01/09/19 - Final Diagnosis (1) Abruptio placenta Is this a current diagnosis for this admission?: Yes (2) Acute blood loss anemia Is this a current diagnosis for this admission?: Yes (3) Delivery normal Is this a current diagnosis for this admission?: Yes Discharge Data - Discharge Medication Home Medications: Vit No.130/Iron/Folic [ Vitamins] 1 each PO DAILY 10/06/18 Reason(s) for Admission: Onset of Labor Procedures: NST Intrapartum Procedure(s): Spontaneous Vaginal Delivery - Diagnosis Test Laboratory: Temp Pulse Resp BP Pulse Ox 97.7 F 64 14 127/79 H 100 01/09/19 08:25 01/09/19 08:25 01/09/19 08:25 01/09/19 08:25 01/09/19 08:25 01/07/19 01/07/19 01/08/19 13:47 14:30 07:08 RBC 3.52 L 3.27 L Hgb 10.3 L 9.6 L Hct 30.6 L 28.6 L Urine Opiates Screen NEGATIVE - Discharge information/Instructions Discharge Activity: Activity As Tolerated, No tub bath Discharge Diet: Regular Disposition: HOME, SELF-CARE Follow [facility]: [facility] in: 4, Weeks
[2019-01-09] MEDS: DOCUSATE SODIUM 100 MG CAPSULE PO SCH (09:41)
[2019-01-09] MEDS: PRENATAL VITAMIN W DHA CAPSULE PO SCH (09:42)
[2019-01-09] MEDS: FERROUS SULFATE 325 MG TABLET PO SCH (09:42)
[2019-01-09] MEDS: FAMOTIDINE 20 MG TABLET PO SCH (09:44)
[2019-01-09] MEDS: SENNOSIDES/DOCUSATE 8.6-50 MG 1 EACH TABLET PO SCH (09:44)
[2019-01-09] MEDS ORDERED: IBUPROFEN 800 MG TABLET PO ONE (10:30)
== END 2019-01-09 15:23 | disposition home or self-care (01) | DRG 806 ==
LOC: LC 13:27 → LR 13:55 → 2S 20:35
PROVIDERS: ADMIT Obstetrics & Gynecology; ATTEND Obstetrics & Gynecology
PROC: 10E0XZZ Delivery of Products of Conception, External Approach (ICD-10-PCS; principal; 2019-01-07)
PROC: 10907ZC Drainage of Amniotic Fluid, Therapeutic from Products of Conception, Via Natural or Artificial Opening (ICD-10-PCS; 2019-01-07)
DX: O45.93 Premature separation of placenta, unspecified, third trimester (principal); D62 Acute posthemorrhagic anemia; Z37.0 Single live birth; O90.81 Anemia of the puerperium; O99.334 Smoking (tobacco) complicating childbirth; F17.210 Nicotine dependence, cigarettes, uncomplicated; Z91.040 Latex allergy status; Z91.018 Allergy to other foods; Z3A.39 39 weeks gestation of pregnancy
CPT/HCPCS: 36415; 80307; 81005; 85025; 85027; 86592; 86850; 86870; 86900; 86901; 86920; 86922; J2210; J2590; J3010; J3490